=== PATIENT | male | born 1975 | race Caucasian/White ===

== ENCOUNTER 2023-02-02 14:08 | Emergency (ER) | payer OTHER, SELFPAY ==
[2023-02-02 15:10] VITALS: BP 138/92; PULSE 57; RESP 18; TEMP 36.5; O2SAT 98; BMI 23.6
--- NOTE | 2023-02-02 15:13 | XR_ITS ---
FINAL REPORT CLINICAL HISTORY: pain FINDINGS: 3 views were obtained. There is no acute fracture. There is no malalignment. The disc spaces are maintained. There is minimal anterior osteophyte formation at L1-L2 and L2-L3. IMPRESSION: No acute process. Reviewed, Interpreted and Dictated by Derrick Huggins MD Transcribed by Saurav Gudino Authenticated and [facility]
--- NOTE | 2023-02-02 15:13 | XR_ITS ---
FINAL REPORT CLINICAL HISTORY: pain FINDINGS: THORACIC SPINE SERIES. Two views demonstrate no fracture. The disc spaces are maintained. There is no malalignment. IMPRESSION: No acute process. Reviewed, Interpreted and Dictated by Derrick Huggins MD Transcribed by Saurav Gudino Authenticated and [facility]
--- NOTE | 2023-02-02 15:13 | XR_ITS ---
FINAL REPORT CLINICAL HISTORY: pain FINDINGS: 3 views were obtained. There is no acute fracture. There is no malalignment. The disc spaces are maintained. IMPRESSION: No acute process. Reviewed, Interpreted and Dictated by Derrick Huggins MD Transcribed by Saurav Gudino Authenticated and [facility]
--- NOTE | 2023-02-02 15:18 | PC.NURSE ---
Called RAD about xrays
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
[2023-02-02 16:02] VITALS: BP 115/72
[2023-02-02 16:50] VITALS: BP 138/92; PULSE 57; RESP 18; TEMP 36.6; O2SAT 98
== END 2023-02-02 16:50 | disposition home or self-care (01) ==
PROVIDERS: Emergency Provider Nurse Practitioner Family; PCP Nurse Practitioner
DX: M54.6 Pain in thoracic spine (principal); M54.2 Cervicalgia; S13.4XXA Sprain of ligaments of cervical spine, initial encounter; V49.40XA Driver injured in collision with unspecified motor vehicles in traffic accident, initial encounter
CPT/HCPCS: 72040; 72070; 72100; 99204; 99212; G0463

== ENCOUNTER 2023-09-27 11:40 | Outpatient (CLI) | payer OTHER, SELFPAY ==
[2023-09-27 21:27] LABS: Basophils # 0.1 K/mm3 (0-0.2); Basophils % 0.8 % (0.1-2.0); Eosinophils # 0.1 K/mm3 (0.0-0.4); Eosinophils % 1.8 % (0.1-12.0); Hematocrit 44.7 % (42.0-52.0); Hemoglobin 15.8 g/dL (14.1-18.0); Lymphocytes # 1.9 K/mm3 (0.7-4.5); Lymphocytes % 26.4 % (10-50); Mean Corpuscular HGB Conc 35.4 g/dL (31.8-35.4); Mean Corpuscular Hemoglobin 32.8 pg (27.0-31.2); Mean Corpuscular Volume 92.7 fl (80-94); Mean Platelet Volume 10.2 fl (7.4-10.4); Monocytes # 0.4 K/mm3 (0.1-1.0); Monocytes % 5.1 % (1.7-9.3); Neutrophils # 4.6 K/mm3 (1.8-7.8); Neutrophils % 65.8 % (37.0-80.0); Platelet Count 248 K/mm3 (142-424); Red Blood Count 4.82 M/mm3 (4.60-6.20); Red Cell Distribution Width 14.5 % (11.5-17.5); White Blood Count 7.1 K/mm3 (4.8-10.8)
[2023-09-27 21:44] LABS: Alanine Aminotransferase 33 U/L (12-78); Albumin Level 4.4 g/dl (3.5-5.0); Albumin/Globulin Ratio 1.3 (1.1-1.8); Alkaline Phosphatase 75 U/L (38-126); Anion Gap 10.8 mEq/L (5-15); Aspartate Amino Transferase 32 U/L (17-59); Bilirubin,Total 0.6 mg/dl (0.2-1.3); Blood Urea Nitrogen 18 mg/dl (9-20); Calcium 9.5 mg/dl (8.4-10.2); Carbon Dioxide 26 mmol/L (22.0-30.0); Chloride 108 mmol/L (98-107); Chol/HDL Ratio 5.5 (1-3.5); Cholesterol 285 mg/dl (140-200); Estimated Glomerular Filt Rate 103 ml/min (>60); GFR (African American) 124 ML/MIN (>60); Globulin 3.4 g/dL (1.3-3.2); Glucose 92 mg/dl (74-100); HDL Cholesterol 52 mg/dl (40-60); Potassium 4.8 mmoL/L (3.5-5.1); Sodium 140 mmol/L (136-145); Total Protein,Serum 7.8 g/dl (6.3-8.2); Triglycerides 127 mg/dl (30-150); VLDL Cholesterol 25 mg/dL (0-40)
[2023-09-27 21:56] LABS: Direct LDL Cholesterol 187.75 mg/dL (100-129)
[2023-09-27 22:16] LABS: Prostate Specific Ag Screen 1.4 ng/ml (0.0-4.0); Thyroid Stimulating Hormone 2.34 uIU/mL (0.465-4.68)
[2023-09-27 22:21] LABS: Hemoglobin A1C 5.7 % (4.0-6.0)
[2023-09-27 22:35] LABS: Vitamin B12 810 pg/mL (239-931)
== END 2023-09-27 23:59 | disposition home or self-care (01) ==
LOC: LAB.DROPOF 09-28 15:06
PROVIDERS: PCP Nurse Practitioner; Visit Provider Nurse Practitioner
DX: R06.02 Shortness of breath (principal); Z13.1 Encounter for screening for diabetes mellitus; Z13.220 Encounter for screening for lipoid disorders
CPT/HCPCS: 80050; 80053; 80061; 82607; 83036; 84443; 85025; G0103

== ENCOUNTER 2024-08-15 12:33 | Outpatient (CLI) | payer OTHER, SELFPAY ==
[2024-08-15 18:36] LABS: Hematocrit 46.9 % (42.0-52.0); Hemoglobin 14.8 g/dL (14.1-18.0); Immature Granulocytes % 0.3 %; Mean Corpuscular HGB Conc 31.6 g/dL (31.8-35.4); Mean Corpuscular Hemoglobin 27.6 pg (27.0-31.2); Mean Corpuscular Volume 87.3 fl (80-94); Nucleated Red Blood Cells % 0 %; Platelet Count 250 K/mm3 (142-424); Red Blood Count 5.37 M/mm3 (4.60-6.20); Red Cell Distribution Width-SD 44.9 fL; White Blood Count 6.3 K/mm3 (4.8-10.8)
[2024-08-15 18:59] LABS: Alanine Aminotransferase 27 U/L (12-78); Albumin Level 4.7 g/dl (3.5-5.0); Albumin/Globulin Ratio 1.6 (1.1-1.8); Alkaline Phosphatase 75 U/L (38-126); Anion Gap 15.8 mEq/L (5-15); Aspartate Amino Transferase 27 U/L (17-59); Bilirubin,Total 0.7 mg/dl (0.2-1.3); Blood Urea Nitrogen 15 mg/dl (9-20); Calcium 8.5 mg/dl (8.4-10.2); Carbon Dioxide 24 mmol/L (22.0-30.0); Chloride 103 mmol/L (98-107); Cholesterol 236 mg/dl (140-200); Creatinine,Serum 0.80 mg/dl (0.66-1.25); Estimated Glomerular Filt Rate 102 ml/min (>60); GFR (African American) 124 ML/MIN (>60); Globulin 2.9 g/dL (1.3-3.2); Glucose 85 mg/dl (74-100); HDL Cholesterol 49 mg/dl (40-60); Potassium 4.8 mmoL/L (3.5-5.1); Sodium 138 mmol/L (136-145); Total Protein,Serum 7.6 g/dl (6.3-8.2); Triglycerides 102 mg/dl (30-150)
[2024-08-15 19:30] LABS: Thyroid Stimulating Hormone 1.30 uIU/mL (0.465-4.68)
[2024-08-15 19:46] LABS: Hepatitis C Ab Qual. W/ RFX NEGATIVE (Negative)
[2024-08-15 19:48] LABS: Hemoglobin A1C 6.7 % (4.0-6.0)
[2024-08-17 06:32] LABS: Hepatitis B Surface Antigen Negative (Negative)
--- OUTSIDE RECORDS SUMMARY | 2024-08-17 12:39 | XMS_ITS | Clinical Summary ---
Author Organization [facility] Address One [facility] [place] [address] Phone Care Team Providers Care Medical Billing Clerk Name Role Phone Jadyn Ortiz Primary Care Provider [phone] Allergies No known active allergies Medications albuterol (PROVENTIL HFA; VENTOLIN HFA) 90 mcg/actuation Inhl HFA Aerosol Inhaler Inhale 2 Puffs into the lungs 0800, 1200, 1600, 1999. Active Active Problems Problem Noted Date Diagnosed Date Shortness of breath 12/05/2019 Calcified Multiple nodules of lung 03/07/2019 Chest pain History of tobacco abuse Family history of coronary artery disease Family History Medical History Relation Name Comments Heart Disease Father Relation Name Status Comments Father Social History Tobacco Use Types Packs/Day Years Used Date Smoking Tobacco: Former Cigarettes 1 - 2012 Smokeless Tobacco: Never Sex and Gender Information Value Date Recorded Sex Assigned at Not on file Legal Sex Male 8:39 PM EDT Gender Identity Not on file Sexual Orientation Not on file Obstetrics History Last Filed Vital Signs Vital Sign Reading Time Taken Comments Blood Pressure 118/64 12/05/2019 9:41 AM EDT Pulse 82 12/05/2019 9:41 AM EDT Temperature 36.9 C (98.4 F) 02/27/2019 7:17 AM EST Respiratory Rate 14 11/09/2019 10:30 AM EDT Oxygen Saturation 97% 12/05/2019 9:41 AM EDT ra @ rest Inhaled Oxygen Concentration - - Weight 81.2 kg (179 lb) 12/05/2019 9:41 AM EDT Height 172.7 cm (5' 8 ) 12/05/2019 9:41 AM EDT Body Mass Index 27.22 12/05/2019 9:41 AM EDT Plan of Treatment Health Maintenance Due Date Last Done Comments Annual Wellness Exam 1976 DTaP/TDaP/Td (1 - Tdap) 1992 Hepatitis B Vaccine (1 of 3 - 19+ 3-dose series) 1992 Cologuard 2018 Colon Cancer Screening 2018 Colonoscopy 2018 FIT 2018 Sigmoidoscopy 2018 Virtual Colonography 2018 COVID-19 Vaccine (1 - 2023-2 5 season) 2023 Pneumococcal Vaccine 50+ (1 of 1 - PCV) 12/27/2023 Zoster (1 of 2) 12/27/2023 Influenza Vaccine (Season Ended) 2024 Meningococcal B Vaccine Aged Out No l onger eligible based on patient's age to complete this topic Insurance [employer] Advance Directives For more information, please contact: [phone] * Full Code (Latest Code Status on File) Date Activated Date Inactivated Comments 02/27/2019 12:42 PM 02/27/2019 10:36 PM Care Teams Medical Billing Clerk Relationship Specialty Start Date End Date Jadyn Ortiz [address] [place] [address] [address] [facility] [place] [address] PCP - General Family Medicine 11/14/19
== END 2024-08-15 23:59 | disposition home or self-care (01) ==
LOC: LAB.DROPOF 08-17 12:36
PROVIDERS: PCP Nurse Practitioner; Visit Provider Nurse Practitioner
DX: K21.9 Gastro-esophageal reflux disease without esophagitis (principal); Z11.59 Encounter for screening for other viral diseases; R06.02 Shortness of breath; R07.89 Other chest pain
CPT/HCPCS: 80053; 80061; 83036; 84443; 85025; 86803; 87340; 87389

== ENCOUNTER 2024-09-08 12:41 | Outpatient (CLI) | payer OTHER, SELFPAY ==
--- OUTSIDE RECORDS SUMMARY | 2024-09-08 12:43 | XMS_ITS | Clinical Summary ---
Author Organization [facility] Address One [facility] [place] [address] Phone Care Team Providers Care Teacher Of The Handicapped Name Role Phone Jadyn Ortiz Primary Care Provider [phone] Allergies No known active allergies Medications albuterol [...] Zoster (1 of 2) 12/27/2023 Influenza Vaccine (#1) 2024 Meningococcal B Vaccine Aged Out No l onger eligible based on patient's age to complete this topic Insurance [employer] Advance Directives For more information, please contact: [phone] * Full Code (Latest Code Status on File) Date Activated Date Inactivated Comments 02/27/2019 12:42 PM 02/27/2019 10:36 PM Care Teams Teacher Of The Handicapped Relationship Specialty Start Date End Date Jadyn Ortiz [address] [place] [address] [address] [place] [address] PCP - General Family Medicine 11/14/19
--- NOTE | 2024-09-08 13:00 | CA_ITS ---
APPROVED REPORT EXAM: Comprehensive 2D, Doppler, and color-flow Echocardiogram Fish Frog Or Oyster Farmer: Candie LovingmanANGEL Ht: 5 ft 9 in Wt: 177lbs BSA: 1.96 BP: 136/92 mmHg Indications: SHORTNESS OF BREATH,CHEST PAIN 2D Dimensions LA Volume 40.80 mL LA Volume Index 20.82 mL/m2 (M/F) 16-34 M-Mode Dimensions RVDd 3.38 cm (0.9-2.6) LA Diam 3.32 cm (1.9-4.0) LVDd 4.41 cm (3.5-5.7) LVDs 3.15 cm (3.5-5.7) IVSd 1.14 cm (0.6-1.1) PWd 0.84 cm (0.6-1.1) EF (Teich) 55.30% FS 28.60% EDV (Teich) 88.20 mL TAPSE 2.17 (<1.7) ESV (Teich) 39.40 mL LV Diastology E Decel Time 150 (160-240 msec) E/A Ratio 1.6 Aortic Valve BOUBACAR Index 1.63 cm2/m2 AoV Peak Jewel. 130.0 (50-130 cm/s) AO Peak GR. 6.80 mmHg AO Mean GR. 4.00 (<5 mmHg) AO VTI 26.1 (18-25 cm) BOUBACAR (VTI) 3.27 (2.5-4.5 cm2) Mitral Valve MV E Max Jewel. 92.0 (40-130 cm/s) MV A Velocity 57.0 (40-130 cm/s) E/A Ratio 1.64 MV PHT 44.0 ms Pulmonary Valve PV Peak Velocity 73.0 (50-150 cm/s) Left Ventricle The left ventricle is normal size. The left ventricular systolic function is normal. The left ventricular ejection fraction is within the normal range. There is normal left ventricular wall thickness. There is normal LV segmental wall motion. The left ventricular diastolic function is normal. LVEF is 55%. Right Ventricle The right ventricle is normal size. The right ventricular systolic function is normal. Atria The left atrium size is normal. The right atrium size is normal. There is no Doppler evidence of interatrial shunt. Aortic Valve The aortic valve opens well. There is no aortic valvular stenosis. No aortic regurgitation is present. Mitral Valve The mitral valve is normal in structure. No evidence of mitral valve stenosis. Trace mitral regurgitation. Tricuspid Valve Tricuspid valve is grossly normal in structure and function. Trace tricuspid regurgitation. There is insufficient TR jet to estimate RVSP. Pulmonic Valve The pulmonary valve is normal in structure. Trace pulmonic regurgitation. Great Vessels The aortic root is normal in size. IVC is normal in size and collapses >50% with inspiration. Pericardium There is no pericardial effusion. Other Information Study Quality: Fair Conclusion Normal biventricular systolic function. No significant valvular stenosis or regurgitation. Electronically signed by : Smitha Bentley MD 09/12/2024 09:16:29
== END 2024-09-08 23:59 | disposition home or self-care (01) ==
LOC: RT 12:42
PROVIDERS: PCP Nurse Practitioner; Visit Provider Physician Assistant
DX: E78.5 Hyperlipidemia, unspecified (principal); R06.02 Shortness of breath; R07.89 Other chest pain; Z82.49 Family history of ischemic heart disease and other diseases of the circulatory system
CPT/HCPCS: 93306

== ENCOUNTER 2024-09-13 11:17 | Outpatient (CLI) | payer OTHER, SELFPAY ==
--- OUTSIDE RECORDS SUMMARY | 2024-09-13 11:22 | XMS_ITS | Clinical Summary ---
Author Organization [facility] Address One [facility] [place] [address] Phone Care Team Providers Care Mobile Ui Developer Name Role Phone Jadyn Ortiz Primary Care Provider [phone] Allergies No known active allergies Medications albuterol [...] Advance Directives For more information, please contact: [phone] * Full Code (Latest Code Status on File) Date Activated Date Inactivated Comments 02/27/2019 12:42 PM 02/27/2019 10:36 PM Care Teams Mobile Ui Developer Relationship Specialty Start Date End Date Jadyn Ortiz [address] [place] [address] [address] [facility] [place] [address] PCP - General Family Medicine 11/14/19
--- NOTE | 2024-09-13 11:30 | CA_ITS ---
APPROVED REPORT Exam: Exercise Treadmill Technologist: Roseann Whiting Ht: 5 ft 9 in Wt: 177 lbs BSA: 1.96 m2 HR: 61 bpm BP: 119/73 mmHg Stress Test Details Test: Exercise stress testing was performed using a Johann protocol. HR Resting HR: 61 bpm Max Heart Rate (APMHR): 170.668575 bpm Max HR Achieved: 156 bpm Target HR (85% APMHR): 144.808507 bpm % of APMHR: 91.76 Recovery HR: 88 bpm BP Resting BP: 119.0/73.0 mmHg Max BP: 181.0/93.0 mmHg Recovery BP: 137.0/87.0 mmHg ECG Stress ECG Conclusion Symptoms: No chest pain. Mild shortness of air. Arrhythmias/Ectopy: None ST-T Changes: < 1.[address] changes. Electronically signed by : Smitha Bentley MD 09/13/2024 20:35:34
== END 2024-09-13 23:59 | disposition home or self-care (01) ==
LOC: RT 11:18
PROVIDERS: PCP Nurse Practitioner; Visit Provider Physician Assistant
DX: E78.5 Hyperlipidemia, unspecified (principal); R07.89 Other chest pain; R06.02 Shortness of breath; Z82.49 Family history of ischemic heart disease and other diseases of the circulatory system
CPT/HCPCS: 93016; 93017; 93018

== ENCOUNTER 2024-10-10 14:58 | Outpatient (CLI) | payer SELFPAY ==
--- NOTE | 2024-10-10 15:00 | CT_ITS ---
APPROVED REPORT Shank Faker: CLINICAL INDICATION Coronary risk evaluation and stratification TECHNIQUE Image Acquisition: A 128 slice MDCT scanner (Ykonea View) was used for data acquisition. A noncontrast coronary calcium scan was performed. A CT attenuation threshold of 130 Hounsfield units (HU) was used for the detection of calcium in contiguous voxels of 1 sq mm in area to be counted as individual lesions. A tube voltage of 120 KVp was used. The patient received no medications prior to the coronary calcium CT. Image Reconstruction Transaxial images were reconstructed at 0.67 mm slide thickness. Data was reviewed interactively on an advanced workstation capable of 2 and 3-dimensional displays in all conventional reconstruction formats, including multiplanar reformations, maximum intensity projections, curved multiplanar reformations, and volume rendered reconstructions. When applicable, selected routine images describing the relevant coronary anatomy and pathology were saved and sent to PACS. Complications None Technical Quality Overall image quality was good. Total DLP (Dose-Length Product) is 197.9 mGy-cm. The reported value represents the total of one or more individual components during the CT acquisition of this date and at this time, and as such, the same value may appear in more than one CT report depending on the interpreting/reporting physicians. COMPARISON None FINDINGS CT Coronary Calcium Scoring LMA (Left Main Artery) = 0 LAD (Left Anterior Descending) = 50 LCX (Left Coronary Circumflex) = 0 RCA (Right Coronary Artery) = 15 Total Calcium Score = 65 using the AJ-130 method. There is no identifiable calcification in the aortic valve, mitral annulus or mitral valve, pericardium, or myocardium. IMPRESSION -Coronary artery calcification is present. -Total Calcium Score (Agatston Score) = 65 using the AJ-130 method. -The observed calcium score of 65 is at 85th percentile for subjects of the same age, sex, and race/ethnicity. The interpretation of the calcium heart score is based on the following continuum*: 0 = no calcified plaque detected (risk of coronary artery disease is very low ??? less than 5%) 1-10 = calcium detected in extremely minimal levels (risk of coronary diseases is still low ??? less than 10%) 11-100 = mild levels of plaque detected with certainty (mild or minimal narrowing of heart arteries is likely) 101-400 = definite,at least moderate levels of plaque detected (relatively high risk of a heart attack within 3-5 years) >401-999 = extensive levels of plaque detected (high risk of heart attack, high levels of vascular disease are present, high likelihood of at least one significant coronary narrowing) *The calcium heart score quantifies the burden of coronary calcification/plaque in the coronary arteries. The calcium heart score does not evaluate the presence or the burden of non-calcified (i.e. soft) plaque. The coronary and cardiac findings of this Coronary Calcium CT were reviewed, reported, and signed by Miguelangel Bentley MD (Carding Machine Feeder). Conclusion Electronically signed by : Smitha Bentley MD 10/11/2024 12:12:11
--- OUTSIDE RECORDS SUMMARY | 2024-10-10 15:00 | XMS_ITS | Clinical Summary ---
Author Organization [facility] Address One [facility] [place] [address] Phone Care Team Providers Care Cardiac Nurse Specialist Name Role Phone Jadyn Ortiz Primary Care Provider [phone] Allergies No known active allergies Medications albuterol [...] Advance Directives For more information, please contact: [phone] * Full Code (Latest Code Status on File) Date Activated Date Inactivated Comments 02/27/2019 12:42 PM 02/27/2019 10:36 PM Care Teams Cardiac Nurse Specialist Relationship Specialty Start Date End Date Jadyn Ortiz [address] [place] [address] [address] [facility] [place] [address] PCP - General Family Medicine 11/14/19
== END 2024-10-10 23:59 | disposition home or self-care (01) ==
PROVIDERS: PCP Nurse Practitioner; Visit Provider Physician Assistant
DX: R07.89 Other chest pain (principal); R06.02 Shortness of breath; Z82.49 Family history of ischemic heart disease and other diseases of the circulatory system; E78.2 Mixed hyperlipidemia
CPT/HCPCS: 75571